=== PATIENT | male | born 1945 | race African-American/Black ===

== ENCOUNTER 2020-03-30 12:15 | Inpatient (IN) | payer OTHER ==
[~2020-03-30] VITALS: Ht 177.8 cm; Wt 77.6 kg
[2020-03-30 12:15] VITALS: BP 151/73
[2020-03-30] MEDS ORDERED: PROSCAR 5MG TABL5 M1 PO (12:26)
[2020-03-30] MEDS ORDERED: PRAVACHOL40 MG PO (12:27)
[2020-03-30] MEDS ORDERED: FERREX 150150 MG PO (12:27)
[2020-03-30] MEDS ORDERED: COZAAR 25 MG TA25 M1 PO (12:27)
[2020-03-30] MEDS ORDERED: SENNA PLUS TAB1 EACH PO (12:28)
[2020-03-30] MEDS ORDERED: PROTONIX40 M2 PO (12:28)
[2020-03-30] MEDS ORDERED: HYDROCHLOROTHIA25 M2 PO (12:28)
[2020-03-30] MEDS ORDERED: BENTYL 10 MG CA10 MG PO (12:29)
[2020-03-30 13:24] LABS: ABSOLUTE NEUTROPHILS 2.6 thou/uL (1.4-8.2); BASOPHILS 0.6 % (0.0-2.0); EOSINOPHILS 1.2 % (0.0-3.0); HEMATOCRIT 36.7 % (42.0-52.0); HEMOGLOBIN 11.9 gm/dL (14.0-18.0); LYMPHOCYTES 21.3 % (24.0-44.0); MCH 32.1 pg (26.0-34.0); MCHC 32.4 g/dL (28.0-37.0); MONOCYTES 16.5 % (1.0-8.0); POLYS 60.4 % (36.0-66.0); RDW 15.3 % (10.5-14.5); WBC 4.4 thou/uL (4.0-11.0)
[2020-03-30 13:49] LABS: CALCIUM 9.3 mg/dL (8.5-10.1); CREATININE 1.1 mg/dL (0.7-1.3); POTASSIUM 3.8 mmol/L (3.5-5.1)
[2020-03-30 13:55] LABS: ALBUMIN 3.4 g/dL (3.4-5.0); TOTAL BILIRUBIN 0.2 mg/dL (0.2-1.0); TOTAL PROTEIN 6.3 g/dL (6.4-8.2)
[2020-03-30 14:03] LABS: LARGE PLATELETS FEW; PLATELET COUNT 229 thou/uL (150-400)
[2020-03-30 17:02] VITALS: BP 151/73
--- NOTE | 2020-03-30 17:26 | NUR ---
75-year-old male presents to the ED for left facial droop, dizziness as well as visual issues mainly blurriness. Reports that the dizziness and blurriness started 03-29-20 at about 11 AM. The patient reports this morning the facial droop was noticed after he woke up and that the dizziness is worse. The patient has been admitted with Stroke protocol and neurology has been consulted. The spouse Mono is listed as next of kin at [phone] and where patient resides. The patient is listed as A&O x4. CM will follow for discharge needs as plan of care progresses and needs are identified.
[2020-03-30 17:52] VITALS: BP 132/88
[2020-03-30 18:30] VITALS: BP 154/73
[2020-03-30 18:49] LABS: FOLIC ACID 34.5 ng/mL (8.6-58.9)
[2020-03-30 20:03] VITALS: BP 153/70
[2020-03-31] VITALS (7 sets, daily range): BP systolic 141–148; BP diastolic 65–89
[2020-03-31 05:43] LABS: CHOLESTEROL 120 mg/dL (<200); HDL CHOLESTEROL 31 mg/dL (>40); LDL CHOLESTEROL 78 mg/dL (<100); TC:HDL 3.9 Ratio (Not establshd); TRIGLYCERIDE 59 mg/dL (<150); VLDL 12 mg/dL (<40)
[2020-03-31 05:46] LABS: SERUM ASSESSMENT Clear
--- NOTE | 2020-03-31 07:38 | NUR ---
ASSUME CARE 1900. PT/VITALS STABLE. DENIES ANY PAIN/NUMBNESS/WEAKNESS IN EXTREMITIES. NO DRIFTING NOTED WITH EXTREMITIES. EQUAL STRENGTH WITH ALL EXTTREMITIES. A/O X 4. FACIAL DROOP NOTED. NO SWALLOWING DIFFICULTY BUT PT INDICATES MILD DIFFICULTY WITH TALKING. SPEECH IS CLEAR THO. ASSESSMENT CHARTED. PLAN IS FOR NEUROLOGY TO SEE PT TODAY/WILL FOLLOW WITH NEURO POC
--- NOTE | 2020-03-31 13:04 | 2DMMODE ---
[facility] [place] [address] 2 D/M-MODE ECHOCARDIOGRAM Name: SANDHYA DUPREE Room #: 205-P ADM IN .R.#: [id number] Admission: 03/30/20 Attend Phys: José Luis Herron MD Discharge: Date of : 47 Report #: [id number] THIS REPORT FOR: cc: Miguel Angel Suarez MD, Steven A. MD Lundgren,Jeremiah Thomas MD [facility] ~ APPROVED REPORT Study performed: 03/31/2020 08:08:31 EXAM: Comprehensive 2D, Doppler, and color-flow Echocardiogram Patient Location: In-Patient Room #: 205 Status: routine BSA: 1.95 HR: 72 bpm BP: 142/86 mmHg Other Information Study Quality: Fair Indications CVA/TIA 2D Dimensions IVSd: 13.07 (7-11mm) LVOT Diam: 22.04 (18-24mm) LVDd: 31.88 mm PWd: 9.99 (7-11mm) LVDs: 18.68 (25-40mm) Aortic Root: 33.27 mm IVC: 11.00 mm Volumes Left Atrial Volume (Systole) Single Plane 4CH: 27.58 mL Single Plane 2CH: 50.19 mL Aortic Valve AoV Peak Jeyson.: 1.44 m/s AO Peak Gr.: 8.26 mmHg LVOT Max P.48 mmHg LVOT Max V: 1.27 m/s STELLA Vmax: 3.38 cm2 Mitral Valve MV Peak Gr.: 1.82 mmHg MV Mean Gr.: 0.79 mmHg E/A Ratio: 1.0 [facility] [place] [address] 2 D/M-MODE ECHOCARDIOGRAM Name: SANDHYA DUPREE Room #: 205-P [facility] IN ..#: [id number] Admission: 03/30/20 Attend Phys: Jennifer Lam Discharge: Date of : 47 Report #: [id number] MV Decel. Time: 2851.45 ms MV E Max Jeyson.: 0.58 m/s MV A Jeyson.: 0.61 m/s MV Max Jeyson.: 0.67 m/s MV Mean Jeyson.: 0.40 m/s MV VTI: 206.14 mm MV PHT: 826.92 ms IVRT: 78.43 ms Pulmonary Vein P Vein S: 0.23 m/s P Vein A: 0.47 m/s P Vein D: 0.37 m/s P Vein A Dur.: 87.7 msec P Vein S/D Ratio: 0.62 Tricuspid Valve TR Peak Jeyson.: 2.65 m/s RAP Estimate: 5.00 mmHg RVSP: 33.00 mmHg Left Ventricle The left ventricle is normal size. There is normal LV segmental wall motion. There is normal left ventricular wall thickness. The left ventricular systolic function is normal. The left ventricular ejection fraction is within the normal range. LVEF is 60-65%. Mild diastolic dysfunction Right Ventricle The right ventricle is normal size. The right ventricular systolic function is normal. Atria The left atrium size is normal. The right atrium size is normal. Aortic Valve The aortic valve is normal in structure. Trace aortic regurgitation There is no aortic valvular stenosis. Mitral Valve The mitral valve is normal in structure. Mild mitral valve regurgitation No evidence of mitral valve stenosis. Tricuspid Valve The tricuspid valve is normal in structure. There is no tricuspid valve regurgitation noted. Pulmonary artery pressure of 30mmHg. [facility] [address] [place] [address] 2 D/M-MODE ECHOCARDIOGRAM Name: SANDHYA DUPREE Room #: 205-P [facility] IN ..#: [id number] Admission: 03/30/20 Attend Phys: Jennifer Lam Discharge: Date of : 47 Report #: [id number] Pulmonic Valve The pulmonary valve is normal in structure. There is no pulmonic valvular regurgitation. Great Vessels The aortic root is normal in size. IVC is normal in size and collapses >50% with inspiration. Pericardium There is no pericardial effusion. <Conclusion> The left ventricular systolic function is normal. There is normal LV segmental wall motion. LVEF is 60-65%. Mild diastolic dysfunction The aortic valve is normal in structure. Trace aortic regurgitation, no stenosis The mitral valve is normal in structure. Mild mitral valve regurgitation There is no tricuspid valve regurgitation noted. Pulmonary artery pressure of 30mmHg. There is no pericardial effusion. <ELECTRONICALLY SIGNED> By: Jeremiah Novak MD, FACC 03/31/20 1304 1304 1304 Jeremiah Novak MD, FACC /INF
[2020-03-31] MEDS ORDERED: ACYCLOVIR 400400 MG PO (14:15)
[2020-03-31] MEDS ORDERED: PREDNISONE 10 M10 MG PO (14:15)
--- NOTE | 2020-03-31 15:50 | NUR ---
PT IS AT BASELINE AND HAVING NO BREATHING ISSUES. PT ON ROOM AIR AND NO SOB WITH ACTIVITY. PT WAS GIVEN D/C PAPERWORK AND IV REMOVED AT THIS TIME. SCRIPTS WERE SENT TO PT'S PREFERRED PHARMACY.
== END 2020-03-31 16:05 | disposition home or self-care (01) | DRG 74 ==
LOC: ER 12:15 → 2N 17:03 → EROBS 17:03 → 2N 17:59
PROVIDERS: Nurse Practitioner; ADMIT Hospitalist; ATTEND Hospitalist
DX: G51.0 Bell's palsy (principal); K21.9 Gastro-esophageal reflux disease without esophagitis; I10 Essential (primary) hypertension; E78.5 Hyperlipidemia, unspecified; F17.210 Nicotine dependence, cigarettes, uncomplicated; N40.0 Benign prostatic hyperplasia without lower urinary tract symptoms; I73.9 Peripheral vascular disease, unspecified; K58.9 Irritable bowel syndrome, unspecified; D50.9 Iron deficiency anemia, unspecified; Z79.899 Other long term (current) drug therapy
CPT/HCPCS: 10081